=== PATIENT | male | born 1990 | race Caucasian/White ===

== ENCOUNTER 2021-11-13 10:29 | Inpatient (IN) | payer OTHER ==
[~2021-11-13] VITALS: Ht 165.1 cm; Wt 90.9 kg
[2021-11-13] MEDS ORDERED: PROZ40CA PO (10:38)
[2021-11-13 13:04] LABS: HEMATOCRIT 40.3 % (42.0-52.0); HEMOGLOBIN 14.3 g/dl (13.5-17.5); MEAN CORPUSCULAR HEMOGLOBIN 31.4 pg (27.0-33.0); MEAN CORPUSCULAR HGB CONC 35.5 g/dl (32.0-36.5); MEAN CORPUSCULAR VOLUME 88.4 fl (80.0-96.0); PLATELET COUNT, AUTOMATED 185 10^3/uL (150-450); RED BLOOD COUNT 4.56 10^6/uL (4.30-6.10); WHITE BLOOD COUNT 5.2 10^3/uL (4.0-10.0)
[2021-11-13 13:36] LABS: ACETAMINOPHEN LEVEL < 2.0 UG/ML (10.0-30.0); ALBUMIN 3.7 GM/DL (3.2-5.2); ALT/SGPT 23 U/L (12-78); BILIRUBIN,DIRECT 0.1 MG/DL (0.0-0.2); BILIRUBIN,TOTAL 0.9 MG/DL (0.2-1.0); BLOOD UREA NITROGEN 8 MG/DL (7-18); CALCIUM LEVEL 8.2 MG/DL (8.5-10.1); CARBON DIOXIDE LEVEL 29 MEQ/L (21-32); CHLORIDE LEVEL 107 MEQ/L (98-107); CREATININE FOR GFR 0.97 MG/DL (0.70-1.30); ETHYL ALCOHOL (ETHANOL) < 0.003 % (0.000-0.010); GLOMERULAR FILTRATION RATE > 60.0 (>60); GLUCOSE, FASTING 92 MG/DL (70-100); POTASSIUM SERUM 4.2 MEQ/L (3.5-5.1); SALICYLATE LEVEL 1.8 MG/DL (5.0-30.0); SODIUM LEVEL 138 MEQ/L (136-145); THYROID STIMULATING HORMONE 0.676 uIU/ML (0.358-3.740); TOTAL PROTEIN 6.5 GM/DL (6.4-8.2)
[2021-11-13 14:01] LABS: RSV AMPLIFICATION NEGATIVE (NEGATIVE)
[2021-11-13 15:17] LABS: AMPHETAMINES LEVEL URINE NEGATIVE (NEGATIVE); BARBITURATES URINE NEGATIVE (NEGATIVE); BENZODIAZEPINES URINE NEGATIVE (NEGATIVE); CANNABINOIDS URINE POSITIVE (NEGATIVE); COCAINE METABOLITE URINE NEGATIVE (NEGATIVE); METHADONE URINE NEGATIVE (NEGATIVE); OPIATES URINE NEGATIVE (NEGATIVE); PHENCYCLIDINE URINE NEGATIVE (NEGATIVE)
[2021-11-13] MEDS ORDERED: MOM 30ML SUSPENSION UDC PO PRN (18:25)
[2021-11-13] MEDS ORDERED: IBUPROFEN 400MG TAB PO PRN (18:25)
[2021-11-13] MEDS ORDERED: MAALOX 30 ML SUSP *UDC PO PRN (18:25)
[2021-11-13] MEDS ORDERED: HOME MED LIST COMPLETE! XX SCH (19:20)
[2021-11-13 23:38] VITALS: BP 134/62
[2021-11-14 06:11] VITALS: BP 120/57
[2021-11-14] MEDS: FLUoxetine 20 MG CAP PO SCH (08:18)
[2021-11-14] MEDS ORDERED: INFLUENZA QUADRIVALENT PF VACCINE 0.5ML SYRINGE IM ONE (09:00)
[2021-11-14 16:20] VITALS: BP 116/73
[2021-11-14] MEDS: traZODone 50 MG TAB PO PRN (20:08)
[2021-11-15 06:25] VITALS: BP 122/79
[2021-11-15] MEDS: FLUoxetine 20 MG CAP PO SCH (08:50)
[2021-11-15] MEDS ORDERED: IBUPROFEN 600MG TAB PO ONE (19:15)
[2021-11-15] MEDS: traZODone 50 MG TAB PO PRN (20:18)
[2021-11-15 20:33] LABS: BLOOD UREA NITROGEN 13 MG/DL (7-18); CALCIUM LEVEL 9.2 MG/DL (8.5-10.1); CARBON DIOXIDE LEVEL 27 MEQ/L (21-32); CHLORIDE LEVEL 108 MEQ/L (98-107); CREATININE FOR GFR 1.03 MG/DL (0.70-1.30); GLOMERULAR FILTRATION RATE > 60.0 (>60); GLUCOSE, FASTING 92 MG/DL (70-100); SODIUM LEVEL 141 MEQ/L (136-145)
[2021-11-15] MEDS: VALPROIC ACID 250MG CAP PO SCH (22:49)
[2021-11-16 06:00] VITALS: BP 117/70
[2021-11-16] MEDS: VALPROIC ACID 250MG CAP PO SCH ×2 (08:30→21:24)
[2021-11-16] MEDS: FLUoxetine 20 MG CAP PO SCH (08:30)
[2021-11-16 18:33] VITALS: BP 121/84
[2021-11-16] MEDS: traZODone 50 MG TAB PO PRN (21:24)
[2021-11-17 06:00] VITALS: BP 104/69
[2021-11-17] MEDS: FLUoxetine 20 MG CAP PO SCH (08:20)
[2021-11-17] MEDS: VALPROIC ACID 250MG CAP PO SCH (08:21)
[2021-11-17] MEDS ORDERED: VALP1CAP2 PO (11:05)
== END 2021-11-17 13:29 | disposition home or self-care (01) | DRG 882 ==
LOC: M ED 10:29 → M ED INP 18:25 → M PSY 23:45
PROVIDERS: ADMIT Psychiatry & Neurology Psychiatry; ATTEND Psychiatry & Neurology Psychiatry
DX: F43.10 Post-traumatic stress disorder, unspecified (principal); R45.851 Suicidal ideations; F41.9 Anxiety disorder, unspecified; F32.A Depression, unspecified; F17.210 Nicotine dependence, cigarettes, uncomplicated; E66.9 Obesity, unspecified; G47.30 Sleep apnea, unspecified; M25.562 Pain in left knee; Z87.820 Personal history of traumatic brain injury; Z91.82 Personal history of military deployment; Z62.811 Personal history of psychological abuse in childhood; Z79.899 Other long term (current) drug therapy; Z68.33 Body mass index [BMI] 33.0-33.9, adult